=== PATIENT | female | born 1980 | race Caucasian/White ===

== ENCOUNTER → 2020-10-07 10:17 | Outpatient (CLI) | payer OTHER, SELFPAY ==
[2020-10-07 11:30] LABS: Add Manual Diff / Slide Review NO; Basophils Absolute Auto 0 /uL (0-100); Basophils Percent Auto 0.5 % (0-2); Eosinophils Absolute Auto 200 /uL (0-450); Eosinophils Percent Auto 3.1 % (2-4); Hemoglobin 13.2 g/dL (12.0-16.0); Lymphocytes Absolute Auto 1200 /uL (1100-4500); Lymphocytes Percent Auto 24.6 % (25-40); Mean Corpuscular HGB Conc 33.7 % (30-36); Mean Corpuscular Hemoglobin 33.2 PG (26-34); Mean Corpuscular Volume 98.6 fL (80-100); Monocytes Absolute Auto 400 /uL (0-900); Monocytes Percent Auto 8.4 % (3-14); Neutrophils Absolute Auto 3200 /uL (1500-7000); Neutrophils Percent Auto 63.4 % (50-75); Platelet Count 273 X10^3/uL (150-400); Red Blood Cell Count 3.96 X10^6/uL (4.0-5.2); Red Cell Distribution Width 13.1 % (11.6-14.8); White Blood Cell Count 5.1 X10^3/uL (4.5-11.0)
[2020-10-07 11:42] LABS: Alanine Aminotransferase 24 IU/L (<35); Albumin 4.3 g/dL (3.5-5.0); Albumin Globulin Ratio 1.5 (1.0-2.8); Alkaline Phosphatase 47 U/L (38-126); Aspartate Aminotransferase 25 IU/L (14-36); BUN Creatinine Ratio 23.5 (6-22); Bilirubin Total 0.3 mg/dL (0.2-1.3); Blood Urea Nitrogen 12 mg/dL (7-17); Carbon Dioxide 24 mmol/L (22-32); Chloride 106 mmol/L (98-107); Estimated Glomerular Filt Rate > 60.0 mL/min (>60); Globulin 2.8 g/dL (1.7-4.1); Glucose 98 mg/dL (70-100); HEMOLYSIS < 15 (0-50); Potassium 4.3 mmol/L (3.4-5.1); Sodium 137 mmol/L (137-145); Total Protein 7.1 g/dL (6.3-8.2)
[2020-10-07 12:01] LABS: Free T4, Direct Thyroxine 1.04 ng/dL (0.78-2.19)
[2020-10-07 12:15] LABS: Thyroid Stimulating Hormone 1.64 uIU/mL (0.47-4.68)
== END ==
PROVIDERS: PCP Registered Nurse Diabetes Educator; Referring Provider Registered Nurse; Visit Provider Registered Nurse
DX: F41.8 Other specified anxiety disorders (principal)
CPT/HCPCS: 36415; 80053; 84439; 84443; 85025

== ENCOUNTER → 2020-11-04 09:37 | Outpatient (CLI) | payer OTHER, SELFPAY ==
--- NOTE | 2020-11-04 09:39 | DI.RAD.S_ITS ---
Saige ROCEDURE: XR LUMBAR SPINE MIN 4V INDICATIONS: LBP/possible LLE radicular sx TECHNIQUE: 5 views of the lumbar spine were acquired, including bilateral oblique views. COMPARISON: None. FINDINGS: Bones: Mild levocurvature. No acute fracture. Multilevel degenerative endplate sclerosis and spurring. Diffuse facet arthropathy. Mild diffuse narrowing of the lumbar disc spaces. Soft tissues: Overlying bowel gas pattern is normal. No suspicious soft tissue calcifications. Incidentally noted IUD Oblique images: No pars defects. IMPRESSION: Mild spondylitic changes and facet arthropathy as above. Mild levocurvature Dictated by: Richard Quezada M.D. on 11/04/2020 at 10:15 Approved by: Richard Quezada M.D. on 11/04/2020 at 10:16
--- NOTE | 2020-11-04 09:39 | DI.MRI.S_ITS ---
PROCEDURE: MR HEAD/BRAIN WO CON INDICATIONS: headaches; hx head trauma TECHNIQUE: Noncontrast axial T1 spin echo, axial T2 fast spin echo, sagittal and axial FLAIR, coronal T2 fast spin echo, axial gradient echo, axial diffusion and ADC through the brain. Thin section, high-resolution axial CISS and axial T1 with fat sat images obtained through the internal auditory canals. COMPARISON: None. FINDINGS: Image quality: Excellent. CSF Spaces: Basal cisterns are patent. No extra-axial fluid collections. Ventricles are normal in size and shape. Brain: No intracranial masses or hemorrhage. Lynch/white matter interface is normal. Brainstem appears normal. Diffusion-weighted images demonstrate no acute ischemic insult. No chronic ischemic insults. Normal intravascular flow voids are present. Total or for a canals have normal size and contour. No abnormal mass identified in the internal auditory canals or cerebellopontine angles. Normal fluid signal noted within the cochlea, semicircular canals and vestibules bilaterally. Skull and face: Calvarium has normal marrow signal. Orbits appear normal. Sinuses: Sinuses and mastoids are clear. IMPRESSION: No acute intracranial disease process. Dictated by: Annelise Sevilla MD, PhD on 11/04/2020 at 10:58 Approved by: Annelise Sevilla MD, PhD on 11/04/2020 at 11:01
== END ==
PROVIDERS: PCP Registered Nurse Diabetes Educator; Referring Provider Registered Nurse; Visit Provider Registered Nurse
DX: R51.9 Headache, unspecified (principal); M54.5 Low back pain; M47.816 Spondylosis without myelopathy or radiculopathy, lumbar region; M79.605 Pain in left leg; G89.29 Other chronic pain; Z87.828 Personal history of other (healed) physical injury and trauma
CPT/HCPCS: 70551; 72110

== ENCOUNTER → 2021-04-17 08:37 | Outpatient (CLI) | payer OTHER, SELFPAY ==
--- NOTE | 2021-04-17 08:39 | DI.US.S_ITS ---
PROCEDURE: US ABDOMEN COMPLETE INDICATIONS: eval epigastric and L side abdomen/R/O GBD TECHNIQUE: Real-time scanning was performed of the abdominal and retroperitoneal organs, with image documentation. COMPARISON: None. FINDINGS: Liver: Liver is prominent in size and homogeneous in echotexture. Gallbladder: No findings of gallstones or sludge are seen. The gallbladder wall is not thickened, measuring 3 mm or less. A 3 mm apparent nonvascular gallbladder wall polyp is incidentally noted. No specific pericholecystic fluid is seen. The sonographic Perez sign is negative. Biliary ducts: Intrahepatic bile ducts are non-dilated. Extrahepatic bile duct caliber measures 5 mm. Normal is 6-7 mm or less in diameter, or 10 mm or less post-cholecystectomy. Pancreas: Visualized portions of the pancreas are sonographically normal. Spleen: Spleen is normal in size and homogeneous in echotexture. Kidneys: Kidneys are normal in size and echotexture. Right kidney measures 10.4 cm long; left kidney measures 12.6 cm long. No nephrolithiasis. No solid masses. The right kidney demonstrates trace pelviectasis, yet without hydronephrosis. The inferior right kidney is not well seen, secondary to overlying bowel gas. Aorta: Visualized aorta is normal in caliber at less than 3 cm. Iliacs: Proximal common iliac arteries are normal in caliber at less than 2.5 cm. IVC: Intrahepatic inferior vena cava is patent. Miscellaneous: No free abdominal fluid. Examination quality is overall limited by bowel gas. IMPRESSION: The gallbladder demonstrates a normal sonographic appearance. No biliary dilatation is seen. 3 mm presumed gallbladder wall polyp incidentally noted. Trace right kidney pelviectasis, without modesto hydronephrosis. Dictated by: Chadd Li M.D. on 04/17/2021 at 9:03 Approved by: Chadd Li M.D. on 04/17/2021 at 9:04
== END ==
PROVIDERS: PCP Registered Nurse Diabetes Educator; Referring Provider Registered Nurse Diabetes Educator; Visit Provider Registered Nurse Diabetes Educator
DX: R10.13 Epigastric pain (principal)
CPT/HCPCS: 76700

== ENCOUNTER → 2021-07-24 10:41 | Outpatient (CLI) | payer OTHER, SELFPAY ==
[2021-07-24 12:12] LABS: Appearance Urine UA CLEAR; Bilirubin Urine UA NEGATIVE (NEGATIVE); Color Urine UA YELLOW; Glucose Urine UA NEGATIVE (Negative); Ketones Urine UA NEGATIVE (NEGATIVE); Leukocyte Esterase Urine UA NEGATIVE (NEGATIVE); Nitrite Urine UA NEGATIVE (Negative); Occult Blood Urine UA TRACE-INTACT (Negative); Protein Urine UA NEGATIVE (Negative); Urobilinogen Urine UA 0.2 E.U./dL (0.2)
[2021-07-24 12:26] LABS: Bacteria Urine Moderate (10-30); Culture Indicated Urine Cult Not Indicated; RBC Urine 1-5/HPF (0-5/HPF); Squamous Epithelial Cell Urine 5-10 /HPF (0-5/HPF); WBC Urine 1-5/HPF (0-5/HPF)
== END ==
PROVIDERS: PCP Registered Nurse Diabetes Educator; Referring Provider Registered Nurse Diabetes Educator; Visit Provider Registered Nurse Diabetes Educator
DX: R35.0 Frequency of micturition (principal)
CPT/HCPCS: 81001

== ENCOUNTER → 2021-10-08 09:42 | Outpatient (CLI) | payer OTHER, SELFPAY ==
--- NOTE | 2021-10-08 09:44 | DI.US.S_ITS ---
PROCEDURE: US RENAL COMPLETE INDICATIONS: 3 month f/u TECHNIQUE: Real-time scanning was performed of the kidneys and bladder, with image documentation. COMPARISON: [facility], US, US ABDOMEN COMPLETE, 04/17/2021, 9:00. FINDINGS: Kidneys: Kidneys are normal in size. Right kidney measures 11.5 cm long; left kidney measures 12.5 cm long. Right renal cortical thickness is 1.2 cm; left renal cortical thickness is 1.4 cm. Renal cortical echotexture is normal. No nephrolithiasis. Right pelvic caliectasis is unchanged. No suspicious solid mass lesions. Bladder: Pre-void bladder volume is 200 mL. Post-void residual is 0 mL. Pre-void images demonstrate no intraluminal masses or stones. On pre-void images, neither ureteral jets are noted with color Doppler interrogation. (Of note, ureteral jets may not be detectable in up to 25% of cases due to insufficient differences in specific gravity between ureteral and bladder urine). Miscellaneous: No free pelvic fluid. IMPRESSION: Previous right pelviocaliectasis is unchanged. Dictated by: Stehpanie Alvarez M.D. on 10/08/2021 at 14:50 Approved by: Stephanie Alvarez M.D. on 10/08/2021 at 14:52
== END ==
PROVIDERS: PCP Registered Nurse Diabetes Educator; Referring Provider Registered Nurse Diabetes Educator; Visit Provider Registered Nurse Diabetes Educator
DX: N28.89 Other specified disorders of kidney and ureter (principal)
CPT/HCPCS: 76770

== ENCOUNTER → 2021-12-22 12:32 | Outpatient (CLI) | payer OTHER, SELFPAY ==
[2021-12-22 13:22] LABS: Appearance Urine UA CLEAR; Bilirubin Urine UA NEGATIVE (NEGATIVE); Color Urine UA YELLOW; Glucose Urine UA NEGATIVE (Negative); Ketones Urine UA NEGATIVE (NEGATIVE); Leukocyte Esterase Urine UA TRACE (NEGATIVE); Nitrite Urine UA NEGATIVE (Negative); Occult Blood Urine UA 1+ (Negative); Protein Urine UA NEGATIVE (Negative); Specific Gravity Urine UA 1.025 (1.000-1.035); Urobilinogen Urine UA 0.2 E.U./dL (0.2)
[2021-12-22 13:47] LABS: Add Manual Diff / Slide Review NO; Basophils Absolute Auto 0 /uL (0-100); Basophils Percent Auto 0.6 % (0-2); Eosinophils Absolute Auto 200 /uL (0-450); Eosinophils Percent Auto 2.1 % (2-4); Hematocrit 36.1 % (36-46); Hemoglobin 12.4 g/dL (12.0-16.0); Lymphocytes Absolute Auto 1900 /uL (1100-4500); Mean Corpuscular HGB Conc 34.3 % (30-36); Mean Corpuscular Hemoglobin 31.8 PG (26-34); Mean Corpuscular Volume 92.7 fL (80-100); Monocytes Absolute Auto 500 /uL (0-900); Monocytes Percent Auto 6.3 % (3-14); Neutrophils Absolute Auto 4800 /uL (1500-7000); Platelet Count 288 X10^3/uL (150-400); Red Blood Cell Count 3.89 X10^6/uL (4.0-5.2); White Blood Cell Count 7.3 X10^3/uL (4.5-11.0)
[2021-12-22 13:48] LABS: pH Urine UA 5.5 (4.5-8.0)
[2021-12-22 13:55] LABS: Blood Urea Nitrogen 13 mg/dL (7-17); Calcium 9.1 mg/dL (8.4-10.2); Carbon Dioxide 26 mmol/L (22-32); Chloride 104 mmol/L (98-107); Estimated Glomerular Filt Rate > 60 mL/min (>60); Glucose 90 mg/dL (70-100); HEMOLYSIS < 15 (0-50); Potassium 4.5 mmol/L (3.4-5.1); Sodium 135 mmol/L (137-145)
[2021-12-22 14:18] LABS: Amorphous Sediment Urine 1+; Bacteria Urine Occasional (0-1); Culture Indicated Urine Cult Not Indicated; RBC Urine 0-1/HPF (0-5/HPF); Squamous Epithelial Cell Urine 10-30 /HPF (0-5/HPF); WBC Urine 0-1/HPF (0-5/HPF)
== END ==
PROVIDERS: PCP Registered Nurse Diabetes Educator; Referring Provider Registered Nurse Diabetes Educator; Visit Provider Registered Nurse Diabetes Educator
DX: N28.89 Other specified disorders of kidney and ureter (principal)
CPT/HCPCS: 36415; 80048; 81001; 85025

== ENCOUNTER → 2022-01-21 12:00 | Outpatient (CLI) | payer OTHER, SELFPAY ==
--- NOTE | 2022-01-21 12:01 | DI.US.S_ITS ---
LIMITED ULTRASOUND OF LEFT BREAST: 01/21/2022 CLINICAL: Palpable left breast lump. Comparison is made to exams dated: 01/21/2022 mammogram - [facility], 01/27/2021 ultrasound, and 01/27/2021 mammogram - [facility]. Color flow and real-time ultrasound of the left breast 2 o'clock region were performed. Lynch scale images of the real-time examination were reviewed. No significant abnormalities were seen sonographically in the left breast at the palpable abnormality. IMPRESSION: NEGATIVE There is no sonographic evidence of malignancy. A 1 year screening mammogram is recommended. Exam findings were conveyed to the patient. Patient is advised to monitor for significant change. Clinical follow-up as needed. This exam was interpreted at Station ID: [id number]. Electronically Signed By: Esa Diaz M.D. slc/:01/21/2022 13:22:00 letter sent: Normal Exam Ultrasound BI-RADS: 1 Negative
--- NOTE | 2022-01-21 12:01 | DI.MG.S_ITS ---
BILATERAL DIGITAL DIAGNOSTIC MAMMOGRAM 3D/2D: 01/21/2022 CLINICAL: Left breast mass. Comparison is made to exam dated: 01/27/2021 mammogram - [facility]. Both breasts are heterogeneously dense, which may obscure small masses (category c / 51-75% glandular tissue). No significant masses, calcifications, or other findings are seen in either breast. IMPRESSION: INCOMPLETE: NEEDS ADDITIONAL IMAGING EVALUATION No mammographic evidence of malignancy. A targeted ultrasound is recommended and will immediately follow. Based on the Tyrer Cuzick model (a risk assessment model) the patient's lifetime risk is 13.3% and her 10 year risk is 1.8%. According to the ACR, ACS, and NCCN guidelines, an annual breast MRI exam along with mammogram is recommended if the patient's lifetime risk is 20% or greater. This exam was interpreted at Station ID: [id number]. NOTE: For mammograms, a report in lay terms will be sent to the patient. Approximately 15% of breast malignancies will not be visualized mammographically. In the management of a palpable breast mass, a negative mammogram must not discourage biopsy of a clinically suspicious lesion. Electronically Signed By: Esa Diaz M.D. slc/:01/21/2022 12:48:23 ACR BI-RADS Category 0: Incomplete [id number]
== END ==
PROVIDERS: PCP Registered Nurse Diabetes Educator; Referring Provider Registered Nurse Diabetes Educator; Visit Provider Registered Nurse Diabetes Educator
DX: N63.20 Unspecified lump in the left breast, unspecified quadrant (principal)
CPT/HCPCS: 76642; 77066; G0279

== ENCOUNTER → 2022-05-04 08:37 | Outpatient (CLI) | payer OTHER, SELFPAY ==
--- NOTE | 2022-05-04 08:38 | DI.CT.S_ITS ---
PROCEDURE: CT ABDOMEN PELVIS WO/W CON INDICATIONS: Right hydronephrosis and flank pain history of stones TECHNIQUE: Optional 5 mm thick noncontrast images acquired from the diaphragm to the symphysis pubis. After the administration of intravenous contrast, 5 mm thick images acquired from the diaphragm to the symphysis pubis after a 10-minute delay. 2 mm thick coronal and sagittal reformats were then performed of the kidneys and ureters. For radiation dose reduction, the following was used: automated exposure control, adjustment of mA and/or kV according to patient size. COMPARISON: [facility], , US ABDOMEN COMPLETE, 04/17/2021, 9:00. [facility], US, US RENAL COMPLETE, 10/08/2021, 10:38. FINDINGS: Image quality: Excellent. Lung bases: Lung bases are clear. Heart size is normal. Small hiatal hernia. Urinary system: Both kidneys are normal in size, without hydronephrosis or nephrolithiasis on pre-contrast images. No perinephric fat stranding. There is normal bilateral renal enhancement. Renal calyces appear normal in morphology when filled with contrast. Opacified portions of both ureters demonstrate normal caliber. Bladder wall appears mildly thickened. No calcified bladder stones. Other solid organs: Liver is normal in size and enhancement. Gallbladder is normal. Biliary system is non dilated. Pancreas enhances normally. Spleen is normal in size and enhancement. No adrenal nodules. Peritoneum and bowel: Bowel loops demonstrate normal wall thickness and caliber. Mild diverticulosis. No acute diverticulitis. There is a moderate amount of stool in colon. Normal appendix. No free fluid or air. Nodes and vessels: No retroperitoneal or mesenteric adenopathy by size criteria. Aorta and inferior vena cava are normal in size. Abdominal wall: No ventral hernias. Pelvis: There is an IUD in uterus. Uterus and ovaries are grossly normal. No pathologic free pelvic fluid. No inguinal hernias or adenopathy. Bones: No suspicious bony lesions. No vertebral body compression fractures. IMPRESSION: 1. No renal stone or hydronephrosis. 2. Mild bladder wall thickening, suggesting cystitis. Please correlate with urinalysis. 3. Diverticulosis without diverticulitis. Dictated by: Antoinette Mackay M.D. on 05/04/2022 at 9:59 Approved by: Antoinette Mackay M.D. on 05/04/2022 at 10:17
== END ==
PROVIDERS: PCP Registered Nurse Diabetes Educator; Referring Provider Urology; Visit Provider Urology
DX: N13.30 Unspecified hydronephrosis (principal); K44.9 Diaphragmatic hernia without obstruction or gangrene; K57.90 Diverticulosis of intestine, part unspecified, without perforation or abscess without bleeding; R10.9 Unspecified abdominal pain; R39.9 Unspecified symptoms and signs involving the genitourinary system; F17.201 Nicotine dependence, unspecified, in remission; Z97.5 Presence of (intrauterine) contraceptive device; Z80.52 Family history of malignant neoplasm of bladder
CPT/HCPCS: 74178; Q9967

== ENCOUNTER → 2022-05-25 09:00 | Outpatient (CLI) | payer OTHER, SELFPAY ==
--- NOTE | 2022-05-25 09:00 | DI.US.S_ITS ---
PROCEDURE: US ABDOMEN LIMITED INDICATIONS: GALLBLADDER POLYP 1 YEAR FOLLOW UP TECHNIQUE: Real-time focused scanning was performed of the abdomen, with image documentation. COMPARISON: [facility], US, US ABDOMEN COMPLETE, 04/17/2021, 9:00. FINDINGS: There is a non mobile focus of increased echogenicity along the anterior wall measuring 3 x 4 x 2 mm compared to 3 x 3 x 3 mm. There is no wall thickening. Wall thickness measures 1.2 mm. Visualized portions of the pancreas are unremarkable. Liver measures 15.6 cm. Right kidney demonstrates trace pelviocaliectasis. IMPRESSION: Non mobile focus of increased echogenicity suggestive of polyps. Adherent sludge cannot be definitively excluded. No wall thickening. It is stable compared to prior exam. Dictated by: Stephanie Alvarez M.D. on 05/25/2022 at 15:12 Approved by: Stephanie Alvarez M.D. on 05/25/2022 at 15:16
== END ==
PROVIDERS: PCP Registered Nurse Diabetes Educator; Referring Provider Registered Nurse Diabetes Educator; Visit Provider Registered Nurse Diabetes Educator
DX: K82.4 Cholesterolosis of gallbladder (principal)
CPT/HCPCS: 76705

== ENCOUNTER → 2022-08-26 07:31 | Outpatient (CLI) | payer OTHER, SELFPAY ==
--- NOTE | 2022-08-26 07:32 | DI.US.S_ITS ---
PROCEDURE: US RENAL COMPLETE INDICATIONS: History of hydronephrosis TECHNIQUE: Real-time scanning was performed of the kidneys and bladder, with image documentation. COMPARISON: [facility], US, US ABDOMEN LIMITED, 05/25/2022, 9:10. [facility], CT, CT ABDOMEN PELVIS WO/W CON, 05/04/2022, 8:42. [facility], US, US RENAL COMPLETE, 10/08/2021, 10:38. FINDINGS: Kidneys: Kidneys are normal in size. Right kidney measures 10.2 cm long; left kidney measures 12.2 cm long. Right renal cortical thickness is 0.8 cm; left renal cortical thickness is 0.8 cm. Renal cortical echotexture is normal. Mild right renal pelviectasis without modesto hydronephrosis. No left hydronephrosis. No evidence of nephrolithiasis bilaterally. Bladder: Pre-void bladder volume is 245 mL. Post-void residual is 2 mL. Pre-void images demonstrate no intraluminal masses or stones. On pre-void images, both ureteral jets are noted with color Doppler interrogation. (Of note, ureteral jets may not be detectable in up to 25% of cases due to insufficient differences in specific gravity between ureteral and bladder urine). Miscellaneous: No free pelvic fluid. IMPRESSION: 1. Mild right pelviectasis without modesto hydronephrosis. 2. No evidence of nephrolithiasis bilaterally. Dictated by: Sergey Razo M.D. on 08/26/2022 at 9:11 Approved by: Sergey Razo M.D. on 08/26/2022 at 9:18
== END ==
PROVIDERS: PCP Registered Nurse Diabetes Educator; Referring Provider Urology; Visit Provider Urology
DX: N13.30 Unspecified hydronephrosis (principal); N28.89 Other specified disorders of kidney and ureter; R39.9 Unspecified symptoms and signs involving the genitourinary system; F17.201 Nicotine dependence, unspecified, in remission; Z87.898 Personal history of other specified conditions; Z80.52 Family history of malignant neoplasm of bladder
CPT/HCPCS: 76770

== ENCOUNTER → 2023-02-24 12:36 | Outpatient (CLI) | payer OTHER, SELFPAY ==
--- NOTE | 2023-02-24 12:38 | DI.MG.S_ITS ---
BILATERAL DIGITAL SCREENING MAMMOGRAM 3D/2D WITH CAD: 02/24/2023 CLINICAL: Routine screening. Family history of breast cancer. Comparison is made to exam dated: 01/21/2022 mammogram - [facility]. Both breasts are heterogeneously dense, which may obscure small masses (category c / 51-75% glandular tissue). Current study was also evaluated with a Computer Aided Detection (CAD) system. No significant masses, calcifications, or other findings are seen in either breast. There has been no significant interval change. IMPRESSION: NEGATIVE There is no mammographic evidence of malignancy. A 1 year screening mammogram is recommended. Based on the Tyrer Cuzick model (a risk assessment model) the patient's lifetime risk is 13.3% and her 10 year risk is 2.1%. According to the ACR, ACS, and NCCN guidelines, an annual breast MRI exam along with mammogram is recommended if the patient's lifetime risk is 20% or greater. This exam was interpreted at Station ID: [id number]. NOTE: For mammograms, a report in lay terms will be sent to the patient. Approximately 15% of breast malignancies will not be visualized mammographically. In the management of a palpable breast mass, a negative mammogram must not discourage biopsy of a clinically suspicious lesion. Electronically Signed By: Esa boswell/luis felipe:02/24/2023 15:51:30 letter sent: Normal Exam ACR BI-RADS Category 1: Negative [id number]
--- NOTE | 2023-02-24 12:38 | DI.US.S_ITS ---
PROCEDURE: US RENAL COMPLETE INDICATIONS: FOLLOW UP HYDRONEPHROSIS TECHNIQUE: Real-time scanning was performed of the kidneys and bladder, with image documentation. COMPARISON: [facility], , US RENAL COMPLETE, 08/26/2022, 8:39. FINDINGS: Kidneys: Kidneys are normal in size. Right kidney measures 9.2 cm long; left kidney measures 9.9 cm long. Right renal cortical thickness is 1.5 cm; left renal cortical thickness is 1.5 cm. Renal cortical echotexture is normal. No hydronephrosis or nephrolithiasis. No suspicious solid mass lesions. Bladder: Pre-void bladder volume is 159 mL. Post-void residual is 1.3 mL. Pre-void images demonstrate no intraluminal masses or stones. On pre-void images, bilateral ureteral jets are noted with color Doppler interrogation. (Of note, ureteral jets may not be detectable in up to 25% of cases due to insufficient differences in specific gravity between ureteral and bladder urine). Miscellaneous: No free pelvic fluid. IMPRESSION: Compared to prior ultrasound 08/26/2022, interval resolution of right pelviectasis. No hydronephrosis or nephrolithiasis bilaterally. Dictated by: Dalia Briceno M.D. on 02/24/2023 at 16:18 Approved by: Dalia Briceno M.D. on 02/24/2023 at 16:20
== END ==
PROVIDERS: PCP Registered Nurse Diabetes Educator; Referring Provider Registered Nurse Diabetes Educator; Visit Provider Registered Nurse Diabetes Educator
DX: Z12.31 Encounter for screening mammogram for malignant neoplasm of breast (principal); N13.30 Unspecified hydronephrosis; Z80.3 Family history of malignant neoplasm of breast
CPT/HCPCS: 76770; 77063; 77067

== ENCOUNTER → 2023-03-18 09:29 | Outpatient (CLI) | payer OTHER, SELFPAY ==
--- NOTE | 2023-03-18 09:34 | DI.RAD.S_ITS ---
PROCEDURE: XR LUMBAR SPINE MIN 4V INDICATIONS: chronic pain TECHNIQUE: 5 views of the lumbar spine were acquired, including bilateral oblique views. COMPARISON: [facility], , XR LUMBAR SPINE MIN 4V, 11/04/2020, 9:38. FINDINGS: Bones: 5 nonrib-bearing vertebrae are present. There is normal bony alignment. No vertebral body compression fractures. No suspicious bony lesions. Soft tissues: Overlying bowel gas pattern is normal. No suspicious soft tissue calcifications. Midline intrauterine device noted Oblique images: No pars defects. IMPRESSION: Unremarkable lumbar spine radiographs Approved by: Rey Prajapati M.D. on 03/18/2023 at 17:49
--- NOTE | 2023-03-18 09:34 | DI.RAD.S_ITS ---
PROCEDURE: XR ELBOW RT MIN 3V INDICATIONS: chronic lateral pain TECHNIQUE: 3 views of the elbow were acquired. COMPARISON: None. FINDINGS: Bones: No fractures or dislocations. No suspicious bony lesions. Soft tissues: No elbow joint effusion. No suspicious soft tissue calcifications. IMPRESSION: Normal right elbow radiographs Approved by: Rey Prajapati M.D. on 03/18/2023 at 17:47
--- NOTE | 2023-03-18 09:34 | DI.RAD.S_ITS ---
PROCEDURE: XR CERVICAL SPINE 2V OR 3V INDICATIONS: chronic pain TECHNIQUE: 3 view(s) of the cervical spine were acquired. COMPARISON: None. FINDINGS: Bones: No fractures or dislocations to the T1 level. The lateral masses of C1 appear intact on the odontoid view. No suspicious bony lesions. Mild disc space narrowing in the lower cervical spine Soft tissues: No prevertebral soft tissue swelling. IMPRESSION: Mild degenerative disc disease in the lower cervical spine Approved by: Rey Prajapati M.D. on 03/18/2023 at 17:48
[2023-03-18 11:22] LABS: BUN Creatinine Ratio 18.6 (6-22); Blood Urea Nitrogen 11 mg/dL (7-17); Calcium 9.3 mg/dL (8.4-10.2); Carbon Dioxide 28 mmol/L (22-32); Chloride 102 mmol/L (98-107); Estimated Glomerular Filt Rate > 60 mL/min (>60); Glucose 91 mg/dL (70-100); HEMOLYSIS < 15 (0-50); Potassium 4.3 mmol/L (3.4-5.1); Sodium 136 mmol/L (137-145)
== END ==
PROVIDERS: PCP Registered Nurse Diabetes Educator; Referring Provider Urology; Visit Provider Urology
DX: M77.10 Lateral epicondylitis, unspecified elbow (principal); M50.30 Other cervical disc degeneration, unspecified cervical region; N28.89 Other specified disorders of kidney and ureter; M54.40 Lumbago with sciatica, unspecified side; N13.30 Unspecified hydronephrosis; G89.29 Other chronic pain; R39.9 Unspecified symptoms and signs involving the genitourinary system; F17.201 Nicotine dependence, unspecified, in remission; Z80.52 Family history of malignant neoplasm of bladder
CPT/HCPCS: 36415; 72040; 72110; 73080; 80048; 81002; 99213

== ENCOUNTER → 2023-12-20 09:29 | Outpatient (CLI) | payer OTHER, SELFPAY ==
--- NOTE | 2023-12-20 09:30 | DI.US.S_ITS ---
LIMITED ULTRASOUND OF LEFT BREAST: 12/20/2023 CLINICAL: Focal left breast pain x 3 years. Comparison is made to exams dated: 02/24/2023 mammogram, 01/21/2022 ultrasound, 01/21/2022 mammogram - [facility], 01/27/2021 ultrasound, and 01/27/2021 mammogram - [facility]. Real-time ultrasound of the left breast 1-3 o'clock region was performed. Lynch scale images of the real-time examination were reviewed. No significant abnormalities were seen sonographically in the left breast. IMPRESSION: NEGATIVE There is no sonographic evidence of malignancy. There is no abnormality seen in the left breast to correspond with the palpable abnormality, however, clinical followup is recommended. Return to annual mammogram screening schedule is recommended. Future imaging is recommended as follows: 02/25/2024 screening mammogram. This exam was interpreted at Station ID: [id number]. Electronically Signed By: Sergey doe/luis felipe:12/20/2023 21:03:47 letter sent: Clinical Evaluation Ultrasound BI-RADS: 1 Negative
== END ==
LOC: US 09:30
PROVIDERS: PCP Registered Nurse Diabetes Educator; Referring Provider Nurse Practitioner Family; Visit Provider Nurse Practitioner Family
DX: N63.20 Unspecified lump in the left breast, unspecified quadrant (principal); N64.4 Mastodynia
CPT/HCPCS: 76642

== ENCOUNTER → 2024-04-07 15:28 | Outpatient (CLI) | payer OTHER, SELFPAY ==
--- NOTE | 2024-04-07 15:30 | DI.MG.S_ITS ---
BILATERAL DIGITAL SCREENING MAMMOGRAM 3D/2D WITH CAD: 04/07/2024 CLINICAL: Routine screening. Family history of breast cancer. Comparison is made to exams dated: 02/24/2023 mammogram, 01/21/2022 mammogram - [facility], and 01/27/2021 mammogram - [facility]. The breasts are heterogeneously dense, which may obscure small masses (category c / 51-75% glandular tissue). Current study was also evaluated with a Computer Aided Detection (CAD) system. No significant masses, calcifications, or other findings are seen in either breast. There has been no significant interval change. IMPRESSION: NEGATIVE There is no mammographic evidence of malignancy. A 1 year screening mammogram is recommended. Based on the Tyrer Cuzick model (a risk assessment model) the patient's lifetime risk is 13.2% and her 10 year risk is 2.3%. According to the ACR, ACS, and NCCN guidelines, an annual breast MRI exam along with mammogram is recommended if the patient's lifetime risk is 20% or greater. This exam was interpreted at Station ID: [id number]. NOTE: For mammograms, a report in lay terms will be sent to the patient. Approximately 15% of breast malignancies will not be visualized mammographically. In the management of a palpable breast mass, a negative mammogram must not discourage biopsy of a clinically suspicious lesion. Electronically Signed By: Sergey doe/luis felipe:04/07/2024 16:36:15 letter sent: Normal Exam ACR BI-RADS Category 1: Negative
== END ==
LOC: MAMMO 15:30
PROVIDERS: PCP Registered Nurse Diabetes Educator; Referring Provider Registered Nurse Diabetes Educator; Visit Provider Registered Nurse Diabetes Educator
DX: Z12.31 Encounter for screening mammogram for malignant neoplasm of breast (principal); Z80.3 Family history of malignant neoplasm of breast; R92.333 Mammographic heterogeneous density, bilateral breasts
CPT/HCPCS: 77063; 77067